=== PATIENT | male | born 2000 | race Caucasian/White ===

== ENCOUNTER 2022-01-01 12:55 | Emergency (ER) | payer SELFPAY | END 2022-01-01 13:50 | disposition home or self-care (01) | LOC: JD.ED 12:55 | DX: K08.89 Other specified disorders of teeth and supporting structures (principal) | CPT/HCPCS: 99282 ==

== ENCOUNTER 2022-01-24 16:12 | Emergency (ER) | payer SELFPAY ==
[2022-01-24] MEDS ORDERED: Naproxen 500 MG Tab PO ONE (18:08)
[2022-01-24] MEDS ORDERED: Orphenadrine 100 MG Tab.ER PO ONE (18:09)
== END 2022-01-24 18:58 | disposition home or self-care (01) ==
LOC: JD.ED 16:12
DX: S39.012A Strain of muscle, fascia and tendon of lower back, initial encounter (principal); X50.0XXA Overexertion from strenuous movement or load, initial encounter
CPT/HCPCS: 72100; 99283; A9270